=== PATIENT | female | born 1995 | race Caucasian/White ===

== ENCOUNTER 2023-09-19 09:24 | Outpatient (CLI) | payer MEDICAID ==
[~2023-09-19 09:24] MED LIST: HYDR1TAB PO; NORG1TAB90 PO; ZOF4T PO
== END 2023-09-19 23:59 | disposition home or self-care (01) ==
LOC: RAD 09:24
PROVIDERS: ATTEND Family Medicine
DX: N83.8 Other noninflammatory disorders of ovary, fallopian tube and broad ligament (principal); R10.32 Left lower quadrant pain
CPT/HCPCS: 74176